=== PATIENT | male | born 1985 | race Caucasian/White ===

== ENCOUNTER 2023-03-26 14:56 | Inpatient (IN) | payer OTHER, SELFPAY ==
[2023-03-26] VITALS (22 sets, daily range): BP systolic 129–158; BP diastolic 91–119; PULSE 68–97; RESP 16–20; TEMP 35.9–36.4; O2SAT 94–100; BMI 29.3
--- NOTE | 2023-03-26 15:17 | CRLHL7_ITS ---
For Patients: As a result of the Century Cures Act, medical imaging exams and procedure reports are released immediately into your electronic medical record. You may view this report before your referring provider. If you have questions, please contact your health care provider. INDICATION: Right upper quadrant abdomen pain. TECHNIQUE: Ultrasound abdomen limited. Sonographic images of the right upper quadrant were obtained using rao-scale and color Doppler images. COMPARISON: None. FINDINGS: Liver: Increased echogenicity of the liver.. No suspicious masses. No intrahepatic biliary dilatation. The hepatic lobe cysts measuring 2.5 x 1.8 x 2.2 centimeters Gallbladder: Shadowing stone identified in the gallbladder fundus measuring up to 1.4 centimeters in diameter. Gallbladder wall measures up to 3 millimeters, at the upper limits of normal.. Of note, a positive sonographic Chau sign was noted. Common bile duct: 6 mm. Pancreas: Partially visualized, unremarkable Right kidney: Normal in size. Normal echotexture and cortex. No suspicious masses, stones, or hydronephrosis. Vasculature: Proximal abdominal aorta and IVC are unremarkable. IMPRESSION: Cholelithiasis with gallbladder wall measuring at the upper limits of normal. Positive sonographic Chau sign is noted. Findings can be seen in the proper clinical setting for cholecystitis. Increased echogenicity of the liver concerning for hepatic steatosis. Dictated by Derrell Shaffer MD @ 03/26/2023 5:01:28 PM (Electronically Signed)
--- NOTE | 2023-03-26 15:20 | ED_ITS ---
HPI - General Adult General Time Seen by Provider: 15:20 Date Seen: 03/26/23 Chief complaint: Abdominal Pain Stated complaint: stomach pains Time Seen by Provider: 03/26/23 15:05 Source: patient Mode of arrival: ambulatory Limitations: no limitations History of Present Illness HPI narrative: Patient is a 37-year-old male presenting emergency department for right upper quadrant pain. Has no previous abdominal surgeries. Patient states he is 1st had the pain 2 months ago and was supposed to have surgery at [facility] to remove his gallbladder. The 1st surgery was canceled and the next 1 was scheduled for a month after that but he was unable to make it due to a family emergency. He has been unable to get in with them since then. Patient states he has been jose ing Tylenol and ibuprofen for pain and Zofran for nausea in managing the symptoms at home. States the pain is acutely worse this morning. He has not been eat or drink anything is not taking any medications. She states they have a family vacation in 3 weeks in their hope indicates gallbladder removed before then. Denies fevers, chills, chest pain, shortness of breath, diarrhea, constipation, dysuria, headache, vision changes. Related Data Home Medications Medication Instructions Recorded Confirmed No Known Home Medications 03/26/23 03/26/23 Allergies Allergy/AdvReac Type Severity Reaction Status Date / Time bee venom protein (honey bee) Allergy Unknown Verified 03/26/23 15:11 Review of Systems Status of ROS: Reports: 10 or more systems reviewed and unremarkable except as noted in History and below PFSH PFS Social History What is your current living situation?: I presently have a place to live Problems where you live: no known problems Problems where you live details: none In the past 12 months, utilities in danger of being shut off: no In the past 12 mos, have been you worried that your food would run out before you had money to buy more?: never true In the past 12 mos, the food you bought just didn't last and you didn't have money to buy more?: never true Smoking Status: Never smoker Do you use any of these nicotine containing products: None How often do you have a drink containing alcohol: never How often do you have six or more drinks on one occasion: Never AUDIT-C Alcohol total score: 0 Non-prescribed substance use: denies use Caffeine: No How often does anyone, including family, friends and others, physically hurt you : never How often does anyone, including family, friends and others, insult or talk down to you: never How often does anyone, including family, friends and others, threaten you with harm: never How often does anyone, including family, friends and others, scream or curse at you: never service: No Exam Const: Vital Signs, click to edit/add: Vital Signs - 24 hr 03/26/23 15:07 03/26/23 15:19 03/26/23 15:30 Temperature 96.6 F L Pulse Rate 74 82 Pulse Rate [Pulse Oximeter] 73 Respiratory Rate 20 Blood Pressure Blood Pressure [Ri ght Upper Arm] 150/119 H Pulse Oximetry 97 97 [facility] 03/26/23 15:33 03/26/23 15:34 03/26/23 15:39 Temperature Pulse Rate 85 82 Pulse Rate [Pulse Oximeter] Respiratory Rate Blood Pressure 148/94 H Blood Pressure [Ri ght Upper Arm] Pulse Oximetry 96 96 96 Oxygen Delivery [facility] 03/26/23 15:45 03/26/23 16:02 03/26/23 16:07 Temperature Pulse Rate 89 68 Pulse Rate [Pulse Oximeter] Respiratory Rate Blood Pressure 129/91 H Blood Pressure [Ri ght Upper Arm] Pulse Oximetry 94 100 Oxygen Delivery [facility] 03/26/23 16:15 03/26/23 16:30 03/26/23 16:45 Temperature Pulse Rate 75 73 73 Pulse Rate [Pulse Oximeter] Respiratory Rate Blood Pressure Blood Pressure [Ri ght Upper Arm] Pulse Oximetry 95 95 95 [facility] 03/26/23 17:00 03/26/23 17:03 03/26/23 17:15 Temperature Pulse Rate 72 74 79 Pulse Rate [Pulse Oximeter] Respiratory Rate Blood Pressure 158/103 H Blood Pressure [Ri ght Upper Arm] Pulse Oximetry 97 97 97 [facility] 03/26/23 17:30 03/26/23 17:45 03/26/23 18:00 Temperature Pulse Rate 77 81 80 Pulse Rate [Pulse Oximeter] Respiratory Rate Blood Pressure Blood Pressure [Ri ght Upper Arm] Pulse Oximetry 97 97 97 [facility] 03/26/23 18:02 Temperature Pulse Rate 76 Pulse Rate [Pulse Oximeter] Respiratory Rate Blood Pressure 139/95 H Blood Pressure [Ri ght Upper Arm] Pulse Oximetry 97 Oxygen Delivery Me thod Course Vital Signs Vital signs: Initial Vital Signs Temperature 96.6 F L 03/26/23 15:07 Temperature Source Temporal Artery Scan 03/26/23 15:07 Pulse Rate 73 03/26/23 15:07 Respiratory Rate 20 03/26/23 15:07 Blood Pressure 150/119 H 03/26/23 15:07 Blood Pressure Mean 129 H 03/26/23 15:07 Blood Pressure Position Supine 03/26/23 15:07 Pulse Oximetry 97 03/26/23 15:07 Oxygen Delivery Method Room Air 03/26/23 15:07 Vital Signs Temperature 96.6 F L 03/26/23 15:07 Pulse Rate 73 03/26/23 15:07 Respiratory Rate 20 03/26/23 15:07 Blood Pressure 150/119 H 03/26/23 15:07 Pulse Oximetry 97 03/26/23 15:07 Oxygen Delivery Method Room Air 03/26/23 15:07 Temperature 97.0 F L 03/26/23 18:51 Pulse Rate 76 03/26/23 18:02 Respiratory Rate 18 03/26/23 18:51 Blood Pressure 139/95 H 03/26/23 18:02 Pulse Oximetry 97 03/26/23 18:51 Oxygen Delivery Method Room Air 03/26/23 18:51 Medical Decision Making [facility] Narrative Medical decision making narrative: Const: Well-nourished, Well-developed, in moderate distress Eyes: PERRL, no conjunctival injection, and symmetrical lids ENMT: Atraumatic external nose and ears. Moist mucous membranes. Neck: Symmetric, trachea midline, No thyromegaly. CVS: RRR, No murmurs or gallops. Peripheral pulses 2+ and equal in all extremities RESP: Unlabored respiratory effort. Clear to auscultation bilaterally. GI: Right upper quadrant tenderness. Nondistended, No rebound or guarding. Negative Chau sign MSK:Extremities w/o deformity, Normal Active ROM Skin: Warm, Dry. No rashes or lesions. Neuro: Normal Muscle tone, No focal neurological deficits. Psych: Awake, Alert, & Oriented x3. Appropriate mood and affect. Lab Data Labs: Lab Results 03/26/23 Range/Units 15:17 WBC 10.40 (4.50-11.00) K/uL RBC 5.38 (4.30-5.90) m/uL Hgb 15.8 (13.5-17.5) gm/dL Hct 46.0 (37.0-53.0) % MCV 86 (80-100) fL MCH 29 (26-34) pg MCHC 34 (32-36) gm/dL RDW Coeff of Georgie 11.9 (11.5-15.5) % Plt Count 213 (140-440) K/uL Neut % (Auto) 80.3 H (42.0-72.0) % Lymph % (Auto) 11.7 L (20-44) % Hamilton % (Auto) 6.1 (0.0-11.0) % Eos % (Auto) 0.3 (0.0-7.0) % Baso % (Auto) 0.3 (0.0-3.0) % Neut # (Auto) 8.40 H (1.7-7.0) K/uL Lymph # (Auto) 1.20 (0.90-2.90) K/uL Hamilton # (Auto) 0.60 (0.00-0.90) K/UL Eos # (Auto) 0.03 (0.00-0.50) K/uL Baso # (Auto) 0.03 (0.00-0.30) K/uL Abs Immat Gran (auto) 0.14 (0.00-0.30) K/uL Imm/Tot Granulo (auto) 1.3 % Sodium 138 (135-149) mmol/L Potassium 3.9 (3.6-5.1) mmol/L Chloride 103 (96-114) mmol/L Carbon Dioxide 25 (20-32) mmol/L BUN 17 (5-24) mg/dL Creatinine 0.8 (0.5-1.5) mg/dL Estimated Creat Clear 137.27 Estimated GFR 118 ml/min Glucose 114 (60-115) mg/dL Calcium 9.0 (8.4-10.6) mg/dL Total Bilirubin 0.8 (0.1-1.5) mg/dL AST 30 (12-35) U/L ALT 41 (4-50) U/L Alkaline Phosphatase 63 (40-150) U/L Total Protein 7.6 (6.0-8.3) g/dL Albumin 4.7 (3.3-5.0) g/dL Lipase 50 (23-300) U/L Discharge Plan Discharge Patient Disposition: Admitted As Observation
[2023-03-26] MEDS: LACTATED RINGERS 1000 ML 1,000 ML IV (15:24)
[2023-03-26] MEDS: MORPHINE 4 MG/ML INJ IVP ×2 (15:25→16:38)
[2023-03-26] MEDS: ONDANSETRON 2 MG/ML inj 4 MG IVP (15:25)
[2023-03-26 15:30] LABS: Basophils Absolute Auto 0.03 K/uL (0.00-0.30); Basophils Percent Auto 0.3 % (0.0-3.0); Eosinophils Absolute Auto 0.03 K/uL (0.00-0.50); Eosinophils Percent Auto 0.3 % (0.0-7.0); Hemoglobin* 15.8 gm/dL (13.5-17.5); Immature Granulocytes Abs Auto 0.14 K/uL (0.00-0.30); Immature Granulocytes Pct Auto 1.3 %; Lymphocytes Percent Auto 11.7 % (20-44); Mean Corpuscular HGB Conc 34 gm/dL (32-36); Mean Corpuscular Hemoglobin 29 pg (26-34); Mean Corpuscular Volume 86 fL (80-100); Monocytes Percent Auto 6.1 % (0.0-11.0); Neutrophils Percent Auto 80.3 % (42.0-72.0); Platelet Count* 213 K/uL (140-440); RDW Coefficient of Variation % 11.9 % (11.5-15.5); Red Blood Count 5.38 m/uL (4.30-5.90)
[2023-03-26 15:45] LABS: Albumin* 4.7 g/dL (3.3-5.0)
[2023-03-26 15:46] LABS: Chloride* 103 mmol/L (96-114); Potassium* 3.9 mmol/L (3.6-5.1); Sodium* 138 mmol/L (135-149)
[2023-03-26 15:48] LABS: Aspartate Amino Transferase* 30 U/L (12-35); Bilirubin Total* 0.8 mg/dL (0.1-1.5); Carbon Dioxide* 25 mmol/L (20-32); Creatinine* 0.8 mg/dL (0.5-1.5); Est. Creatinine Clearance* 137.27; Estimated Glomerular Filt Rate 118 ml/min; Total Protein* 7.6 g/dL (6.0-8.3)
[2023-03-26 15:49] LABS: Alanine Aminotransferase* 41 U/L (4-50); Alkaline Phosphatase* 63 U/L (40-150); Blood Urea Nitrogen* 17 mg/dL (5-24); Glucose* 114 mg/dL (60-115); Lipase* 50 U/L (23-300)
[2023-03-26 16:00] LABS: Slide Review Reflex No
--- NOTE | 2023-03-26 19:02 | P.IMHP_ITS ---
Hospitalist- H&P: HPI History of Present Illness Date Seen: 03/26/23 Chief complaint: stomach pains Narrative: Rafi Bustamante is a 37 year old male who is presenting to ED for evaluation of abdominal pain. The patient has had intermittent RUQ abdominal pain over the last two months. He was supposed to have previous lap miguel but ultimately had to cancel his surgery due to schedule issues. He presented today to ED for evaluation of nausea, vomiting, and 10/10 abdominal pain. In the ED notable labs included normal WBC, normal AST, ALT. RUQ US showed Cholelithiasis with gallbladder wall measuring at the upper limits of normal. Positive sonographic Chau sign is noted. Findings can be seen in the proper clinical setting for cholecystitis. His case was discussed with general surgery who recommended admission for anticipated Lap miguel tomorrow. MPRESSION: Cholelithiasis with gallbladder wall measuring at the upper limits of normal. Positive sonographic Chau sign is noted. Findings can be seen in the proper clinical setting for cholecystitis. Increased echogenicity of the liver concerning for hepatic steatosis. Fam Hx-negative for complications from general anesthesia; mother with fatty liver dx Soc Hx-[employer], negative for tobacco use Review of Systems Status of ROS: Reports: 10 or more systems reviewed and unremarkable except as noted in History and below PFSH PFS Social History What is your current living situation?: I presently have a place to live Problems where you live: no known problems Problems where you live details: none In the past 12 months, utilities in danger of being shut off: no In the past 12 mos, have been you worried that your food would run out before you had money to buy more?: never true In the past 12 mos, the food you bought just didn't last and you didn't have money to buy more?: never true Smoking Status: Never smoker Do you use any of these nicotine containing products: None How often do you have a drink containing alcohol: never How often do you have six or more drinks on one occasion: Never AUDIT-C Alcohol total score: 0 Non-prescribed substance use: denies use Caffeine: No How often does anyone, including family, friends and others, physically hurt you : never How often does anyone, including family, friends and others, insult or talk down to you: never How often does anyone, including family, friends and others, threaten you with harm: never How often does anyone, including family, friends and others, scream or curse at you: never service: No Meds Home Medications and Allergies Home Medications Medication Instructions Recorded Confirmed Type No Known Home Medications 03/26/23 03/26/23 History Allergies Allergy/AdvReac Type Severity Reaction Status Date / Time bee venom protein (honey bee) Allergy Unknown Verified 03/26/23 15:11 Exam Narrative: Exam Narrative: Gen: no acute distress HEENT: NCAT EOMI mmm Neck: Supple CV: RRR normal s1 s2 Lungs: CTAB Abd: Soft,nt, nd Neuro: Alert, oriented, CN grossly intact; nonfocal screening?exam Psych: appropriate affect MSK: age appropriate muscle mass Skin; Warm, dry no rash on face Const: Vital Signs, click to edit/add: Vital Signs - 24 hr 03/26/23 15:07 03/26/23 15:19 03/26/23 15:30 Temperature 96.6 F L Pulse Rate 74 82 Pulse Rate [Pulse Oximeter] 73 Respiratory Rate 20 Blood Pressure Blood Pressure [Ri ght Upper Arm] 150/119 H Pulse Oximetry 97 97 95 Oxygen Delivery Me thod Room Air 03/26/23 15:33 03/26/23 15:34 03/26/23 15:39 Temperature Pulse Rate 85 82 Pulse Rate [Pulse Oximeter] Respiratory Rate Blood Pressure 148/94 H Blood Pressure [Ri ght Upper Arm] Pulse Oximetry 96 96 96 Oxygen Delivery Me thod 03/26/23 15:45 03/26/23 16:02 03/26/23 16:07 Temperature Pulse Rate 89 68 Pulse Rate [Pulse Oximeter] Respiratory Rate Blood Pressure 129/91 H Blood Pressure [Ri ght Upper Arm] Pulse Oximetry 94 100 Oxygen Delivery Me thod 03/26/23 16:15 03/26/23 16:30 03/26/23 16:45 Temperature Pulse Rate 75 73 73 Pulse Rate [Pulse Oximeter] Respiratory Rate Blood Pressure Blood Pressure [Ri ght Upper Arm] Pulse Oximetry 95 95 95 Oxygen Delivery Me thod 03/26/23 17:00 03/26/23 17:03 03/26/23 17:15 Temperature Pulse Rate 72 74 79 Pulse Rate [Pulse Oximeter] Respiratory Rate Blood Pressure 158/103 H Blood Pressure [Ri ght Upper Arm] Pulse Oximetry 97 97 97 Oxygen Delivery Me thod 03/26/23 17:30 03/26/23 17:45 03/26/23 18:00 Temperature Pulse Rate 77 81 80 Pulse Rate [Pulse Oximeter] Respiratory Rate Blood Pressure Blood Pressure [Ri ght Upper Arm] Pulse Oximetry 97 [address] [facility] 03/[facility]/23 18:02 Temperature Pulse Rate 76 Pulse Rate [Pulse Oximeter] Respiratory Rate Blood Pressure 139/95 H Blood Pressure [Ri ght Upper Arm] Pulse Oximetry [address] [facility] - [facility]: Result Labs Labs: Short CBC 03/26/23 Range/Units 15:17 WBC 10.40 (4.50-11.00) K/uL Hgb 15.8 (13.5-17.5) gm/dL Hct 46.0 (37.0-53.0) % Plt Count 213 (140-440) K/uL BMP 03/26/23 15:17 Sodium 138 Potassium 3.9 Chloride 103 Carbon Dioxide 25 BUN 17 Creatinine 0.8 Glucose 114 Calcium 9.0 Liver Function 03/26/23 Range/Units 15:17 Total Bilirubin 0.8 (0.1-1.5) mg/dL AST 30 (12-35) U/L ALT 41 (4-50) U/L Alkaline Phosphatase 63 (40-150) U/L Albumin 4.7 (3.3-5.0) g/dL Assessment and Plan Assessment and plan (1) Abdominal pain: Status: Acute Plan Assessment Rafi Bustamante is a 37 year old male who is presenting to ED for evaluation of abdominal pain. The patient has had intermittent RUQ abdominal pain over the last two months. He was supposed to have previous lap miguel but ultimately had to cancel his surgery due to schedule issues. He presented today to ED for evaluation of nausea, vomiting, and 10/10 abdominal pain. In the ED notable labs included normal WBC, normal AST, ALT. RUQ US showed Cholelithiasis with gallbladder wall measuring at the upper limits of normal. Positive sonographic Chau sign is noted. Findings can be seen in the proper clinical setting for ch olecystitis. His case was discussed with general surgery who recommended admission for anticipated Lap miguel tomorrow. 1. Symptomatic cholelithiasis; r/o early acute cholecystitis -IVF -antiemetics -IV PPI -start zosyn -npo midnight -surgery team contacted by ED -preop EKG Code-full DVT ppx-low risk
[2023-03-26] MEDS: PIPERACILLIN/TAZOBACTAM 3.375 GM in 0.9 % SODIUM CHLORIDE Mini-bag 100 ML IVPB (19:59)
[2023-03-26] MEDS: SODIUM CHLORIDE 0.9 % (FLUSH) 10 ML SYRINGE 5 ML IVF (20:58)
[2023-03-26 21:21] LABS: Appearance Urine Clear (Clear); Bilirubin Urine Negative (Negative); Blood Urine Negative (Negative); Color Urine Yellow (Yellow); Glucose Urine Negative (Negative); Ketones Urine Negative (Negative); Leukocyte Esterase Urine Negative (Negative); Nitrite Urine Negative (Negative); Protein Urine Negative (Negative); Urobilinogen Urine 0.2 (0.2-1.0); pH Urine 6.5 (5.0-8.5)
[2023-03-26 21:28] LABS: RBC Urine 0-2 (0-2); WBC Urine 0-2 (0-5)
--- NOTE | 2023-03-26 22:59 | PC.NURSE ---
End of shift nursing note, care provided from 0816-0813: Pt alert and oriented, pleasant and cooperative. Vitals stable, BP slightly elevated 154/96, pt asymptomatic, other vitals WDL, on RA. Pt rates pain 3/10 to middle of abdomen, but declines offer/need for PRN pain medication at this time. PRN meds options discussed w/ pt, pt states understanding and states he will let nursing staff know if and when he needs PRN for pain. Pt on clear liquid diet until 0000 then NPO, pt educated and compliant. Tolerated broth x2, jello, ice water and loya ice. Pt up ind in room, voiding without issue. Denies nausea, no emesis. Pre-op EKG completed, reviewed, scanned and placed into pt's chart. No wounds noted to skin aside from pt reported sunburn across chest. Sleeping at last check at 2255. Plan for surgery tomorrow, received scheduled IV abx to patent IV in L AC then saline locked. Pt has call light within reach and uses appropriately.
[2023-03-27] VITALS (31 sets, daily range): BP systolic 127–217; BP diastolic 66–132; PULSE 71–118; RESP 16–20; TEMP 36.1–37.2; O2SAT 93–99
[2023-03-27] MEDS: 0.9 % SODIUM CHLORIDE 1000 ml 1,000 ML 100 ML IV ×2 (00:25→10:11)
[2023-03-27] MEDS: PIPERACILLIN/TAZOBACTAM 3.375 GM in 0.9 % SODIUM CHLORIDE Mini-bag 100 ML IVPB ×3 (03:49→13:15)
--- NOTE | 2023-03-27 05:58 | PC.NURSE ---
shift note: The pt has been pleasant and cooperative. The pt has been reporting 2-3/10 mid abdominal pain- refused PRN pain mediations stating the pain is not bothersome; Denied nausea or vomiting. The pt has been NPO since midnight . An order for NS 100 ML/HR was received from Dr Diego last night ; and the IVF has been infusing throughout the night. The pt appeared without any acute distress throughout the shift.
[2023-03-27 06:45] LABS: Basophils Absolute Auto 0.02 K/uL (0.00-0.30); Basophils Percent Auto 0.3 % (0.0-3.0); Eosinophils Percent Auto 1.4 % (0.0-7.0); Hematocrit 43.1 % (37.0-53.0); Hemoglobin* 14.6 gm/dL (13.5-17.5); Immature Granulocytes Abs Auto 0.01 K/uL (0.00-0.30); Immature Granulocytes Pct Auto 0.1 %; Lymphocytes Absolute Auto 1.73 K/uL (0.90-2.90); Lymphocytes Percent Auto 24.9 % (20-44); Mean Corpuscular HGB Conc 34 gm/dL (32-36); Mean Corpuscular Hemoglobin 29 pg (26-34); Mean Corpuscular Volume 86 fL (80-100); Monocytes Percent Auto 11.1 % (0.0-11.0); Neutrophils Absolute Auto 4.31 K/uL (1.7-7.0); Neutrophils Percent Auto 62.2 % (42.0-72.0); Platelet Count* 189 K/uL (140-440); RDW Coefficient of Variation % 12.1 % (11.5-15.5); Red Blood Count 4.99 m/uL (4.30-5.90); White Blood Count* 6.94 K/uL (4.50-11.00)
[2023-03-27 06:55] LABS: Slide Review Reflex No
[2023-03-27 06:57] LABS: Chloride* 103 mmol/L (96-114)
[2023-03-27 06:58] LABS: Albumin* 4.1 g/dL (3.3-5.0); Sodium* 138 mmol/L (135-149)
[2023-03-27 07:01] LABS: Alanine Aminotransferase* 37 U/L (4-50); Alkaline Phosphatase* 55 U/L (40-150); Aspartate Amino Transferase* 28 U/L (12-35); Blood Urea Nitrogen* 10 mg/dL (5-24); Calcium* 8.7 mg/dL (8.4-10.6); Carbon Dioxide* 28 mmol/L (20-32); Creatinine* 0.8 mg/dL (0.5-1.5); Est. Creatinine Clearance* 137.27; Estimated Glomerular Filt Rate 118 ml/min; Glucose* 97 mg/dL (60-115); Total Protein* 6.5 g/dL (6.0-8.3)
[2023-03-27 07:02] LABS: INR 1.07 (0.91-1.10); Prothrombin Time 14.5 Seconds
--- NOTE | 2023-03-27 07:43 | PM.GSCN ---
Documented by User: Lashae Stubbs MD 03/27/23 12:27 History of Present Illness Consult details Date Seen: 03/27/23 Consult date: 03/27/23 Narrative: The patient is a 37-year-old male who presents to the emergency department yesterday with epigastric pain which began in the morning. He states around 8:09 a.m. he was at work when he developed pain in his epigastric region as well as nausea and vomiting. He states that the pain was so severe that it was 12/10. He came in to be seen. The pain did not radiate anywhere else. It has improved overnight to a 2/10. He was worked up previously at [facility] for this and a CT scan was done which showed gallstones but also possibly kidney cysts. He states that he is concerned because he feels as though 1 doctor said that they were concerning and another doctor said they were not. He feels as though he has gotten the run around regarding this. At [facility] he was given omeprazole, hydroxyzine and Zofran to take p.r.n.. He states that he has had this type of pain for the last year and a half and at 1 point had cholecystectomy scheduled but had to reschedule I believe because of work. He does not have any major medical problems and has not had surgery previously. He does not have any family history of clotting disorders that he knows of though his dad did have a blood clot in his arm and it is unclear whether not that was provoked. His mother had a provoked blood clot and had a history of hemochromatosis. PFSH PFSH Family History (Updated 03/27/23 @ 10:28 by Lashae Stubbs MD) Other Coagulation disorder Social History (Updated 03/27/23 @ 10:29 by Lashae Stubbs MD) Narrative: He does not smoke or drink alcohol. 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 What is your current living situation?: I presently have a place to live Problems where you live: no known problems Problems where you live details: none In the past 12 months, utilities in danger of being shut off: no In the past 12 mos, have been you worried that your food would run out before you had money to buy more?: never true In the past 12 mos, the food you bought just didn't last and you didn't have money to buy more?: never true Smoking Status: Never smoker Do you use any of these nicotine containing products: None How often do you have a drink containing alcohol: never How often do you have six or more drinks on one occasion: Never AUDIT-C Alcohol total score: 0 Non-prescribed substance use: denies use Caffeine: No How often does anyone, including family, friends and others, physically hurt you: never How often does anyone, including family, friends and others, insult or talk down to you: never How often does anyone, including family, friends and others, threaten you with harm: never How often does anyone, including family, friends and others, scream or curse at you: never service: No Meds Home Medications and Allergies Home Medications Medication Instructions Recorded Confirmed Type No Known Home Medications 03/26/23 03/26/23 History Allergies Allergy/AdvReac Type Severity Reaction Status Date / Time bee venom protein (honey bee) Allergy Unknown Verified 03/26/23 15:11 Exam Narrative: Exam Narrative: General appearance: Alert, cooperative, and in no distress Eyes: PERRLA, eye lids clear, and sclera white HENT Head: Normocephalic Ears: External ears normal Pulmonary: Breathing nonlabored on room air Cardiovascular Heart: Regular rate Gastrointestinal Abdominal: No scars. He is tender in the epigastric region. Minimally tender in the right upper quadrant. No peritoneal signs. Equivocal Chau sign. Musculoskeletal: Extremities: Upper: Both upper extremities have normal joint range of motion and intact strength. Lower: Both lower extremities have normal joint range of motion and intact strength. Skin: Normal skin color, texture, and turgor. Neurologic: No focal deficits Psychiatric: Alert, oriented, cooperative, normal affect. Const: Vital Signs, click to edit/add: Vital Signs - 24 hr 03/26/23 15:07 03/26/23 15:19 03/26/23 15:30 Temperature 96.6 F L Pulse Rate 74 82 Pulse Rate [Pulse Oximeter] 73 Respiratory Rate 20 Blood Pressure Blood Pressure [Ri ght Arm] Blood Pressure [Ri ght Upper Arm] 150/119 H Pulse Oximetry 97 97 95 Oxygen Delivery Me thod Room Air Oxygen Flow Rate 03/26/23 15:33 03/26/23 15:34 03/26/23 15:39 Temperature Pulse Rate 85 82 Pulse Rate [Pulse Oximeter] Respiratory Rate Blood Pressure 148/94 H Blood Pressure [Ri ght Arm] Blood Pressure [Ri ght Upper Arm] Pulse Oximetry 96 96 96 Oxygen Delivery Me thod Oxygen Flow Rate 03/26/23 15:45 03/26/23 16:02 03/26/23 16:07 Temperature Pulse Rate 89 68 Pulse Rate [Pulse Oximeter] Respiratory Rate Blood Pressure 129/91 H Blood Pressure [Ri ght Arm] Blood Pressure [Ri ght Upper Arm] Pulse Oximetry 94 100 Oxygen Delivery Me thod Oxygen Flow Rate 03/26/23 16:15 03/26/23 16:30 03/26/23 16:45 Temperature Pulse Rate 75 73 73 Pulse Rate [Pulse Oximeter] Respiratory Rate Blood Pressure Blood Pressure [Ri ght Arm] Blood Pressure [Ri ght Upper Arm] Pulse Oximetry 95 95 95 Oxygen Delivery Me thod Oxygen Flow Rate 03/26/23 17:00 03/26/23 17:03 03/26/23 17:15 Temperature Pulse Rate 72 74 79 Pulse Rate [Pulse Oximeter] Respiratory Rate Blood Pressure 158/103 H Blood Pressure [Ri ght Arm] Blood Pressure [Ri ght Upper Arm] Pulse Oximetry 97 97 97 Oxygen Delivery Me thod Oxygen Flow Rate 03/26/23 17:30 03/26/23 17:45 03/26/23 18:00 Temperature Pulse Rate 77 81 80 Pulse Rate [Pulse Oximeter] Respiratory Rate Blood Pressure Blood Pressure [Ri ght Arm] Blood Pressure [Ri ght Upper Arm] Pulse Oximetry 97 97 97 Oxygen Delivery Me thod Oxygen Flow Rate 03/26/23 18:02 03/26/23 18:51 03/26/23 19:00 Temperature 97.0 F L 97.6 F Pulse Rate 76 Pulse Rate [Pulse Oximeter] 97 Respiratory Rate 18 16 Blood Pressure 139/95 H Blood Pressure [Ri ght Arm] 154/96 H Blood Pressure [Ri ght Upper Arm] Pulse Oximetry 97 97 97 Oxygen Delivery Me thod Room Air Room Air Oxygen Flow Rate 03/26/23 19:45 03/27/23 01:28 03/27/23 01:28 Temperature 97.4 F L Pulse Rate Pulse Rate [Pulse Oximeter] 97 94 Respiratory Rate 16 16 16 Blood Pressure Blood Pressure [Ri ght Arm] 130/66 Blood Pressure [Ri ght Upper Arm] Pulse Oximetry 97 94 Oxygen Delivery Me thod Room Air Room Air Oxygen Flow Rate 0 0 03/27/23 03:00 Temperature 98.3 F Pulse Rate Pulse Rate [Pulse Oximeter] 80 Respiratory Rate 16 Blood Pressure Blood Pressure [Ri ght Arm] 131/83 Blood Pressure [Ri ght Upper Arm] Pulse Oximetry 96 Oxygen Delivery Me thod Room Air Oxygen Flow Rate 0 Results Labs Labs: Abnormal lab results 03/26/23 03/27/23 Range/Units 15:17 05:54 Neut % (Auto) 80.3 H (42.0-72.0) % Lymph % (Auto) 11.7 L (20-44) % [place] % (Auto) 11.1 H (0.0-11.0) % Neut # (Auto) 8.40 H (1.7-7.0) K/uL Total Bilirubin 1.6 H (0.1-1.5) mg/dL Diabetes panel 03/26/23 03/27/23 Range/Units 15:17 05:54 Sodium 138 138 (135-149) mmol/L Potassium 3.9 4.0 (3.6-5.1) mmol/L Chloride 103 103 (96-114) mmol/L Carbon Dioxide 25 28 (20-32) mmol/L BUN 17 10 (5-24) mg/dL Creatinine 0.8 0.8 (0.5-1.5) mg/dL Glucose 114 97 (60-115) mg/dL Calcium 9.0 8.7 (8.4-10.6) mg/dL AST 30 28 (12-35) U/L ALT 41 37 (4-50) U/L Alkaline Phosphatase 63 55 (40-150) U/L Total Protein 7.6 6.5 (6.0-8.3) g/dL Albumin 4.7 4.1 (3.3-5.0) g/dL Calcium panel 03/26/23 03/27/23 Range/Units 15:17 05:54 Calcium 9.0 8.7 (8.4-10.6) mg/dL Albumin 4.7 4.1 (3.3-5.0) g/dL Pituitary panel 03/26/23 03/27/23 Range/Units 15:17 05:54 Sodium 138 138 (135-149) mmol/L Potassium 3.9 4.0 (3.6-5.1) mmol/L Chloride 103 103 (96-114) mmol/L Carbon Dioxide 25 28 (20-32) mmol/L BUN 17 10 (5-24) mg/dL Creatinine 0.8 0.8 (0.5-1.5) mg/dL Glucose 114 97 (60-115) mg/dL Calcium 9.0 8.7 (8.4-10.6) mg/dL Adrenal panel 03/26/23 03/27/23 Range/Units 15:17 05:54 Sodium 138 138 (135-149) mmol/L Potassium 3.9 4.0 (3.6-5.1) mmol/L Chloride 103 103 (96-114) mmol/L Carbon Dioxide 25 28 (20-32) mmol/L BUN 17 10 (5-24) mg/dL Creatinine 0.8 0.8 (0.5-1.5) mg/dL Glucose 114 97 (60-115) mg/dL Calcium 9.0 8.7 (8.4-10.6) mg/dL Total Bilirubin 0.8 1.6 H (0.1-1.5) mg/dL AST 30 28 (12-35) U/L ALT 41 37 (4-50) U/L Alkaline Phosphatase 63 55 (40-150) U/L Total Protein 7.6 6.5 (6.0-8.3) g/dL Albumin 4.7 4.1 (3.3-5.0) g/dL Total bilirubin was initially reported as 1.6 this morning - I added a direct bilirubin component and bilirubin was reported as 1.5 with a direct fraction of 0.1. Imaging Abdominal ultrasound report/results: report reviewed and image reviewed Additional studies: [address] [address] Diagnostic Imaging Report Patient: Rafi Bustamante MR#: [id number] : 1985 Acct:[id number] Loc: ED Service Date: 03/26/[address]: Ordering Physician: Yaron Bradford DO Date of Service: 03/26/23 Procedure(s): US abdomen limited Accession Number(s): [id number] cc: Yaron Bradford DO; Provider,Not a Local~ For Patients: As a result of the Cures Act, medical imaging exams and procedure reports are released immediately into your electronic medical record. You may view this report before your referring provider. If you have questions, please contact your health care provider. INDICATION: Right upper quadrant abdomen pain. TECHNIQUE: Ultrasound abdomen limited. Sonographic images of the right upper quadrant were obtained using rao-scale and color Doppler images. COMPARISON: None. FINDINGS: Liver: Increased echogenicity of the liver.. No suspicious masses. No intrahepatic biliary dilatation. The hepatic lobe cysts measuring 2.5 x 1.8 x 2.2 centimeters Gallbladder: Shadowing stone identified in the gallbladder fundus measuring up to 1.4 centimeters in diameter. Gallbladder wall measures up to 3 millimeters, at the upper limits of normal.. Of note, a positive sonographic Chau sign was noted. Common bile duct: 6 mm. Pancreas: Partially visualized, unremarkable Right kidney: Normal in size. Normal echotexture and cortex. No suspicious masses, stones, or hydronephrosis. Vasculature: Proximal abdominal aorta and IVC are unremarkable. IMPRESSION: Cholelithiasis with gallbladder wall measuring at the upper limits of normal. Positive sonographic Chau sign is noted. Findings can be seen in the proper clinical setting for cholecystitis. Increased echogenicity of the liver concerning for hepatic steatosis. Dictated by Derrell Shaffer MD @ 03/26/2023 5:01:28 PM Additionally, the patient CT scan reports from 2 outside hospitals were reviewed. From 2011: CT scan shows numerous bilateral renal cortical low attenuation lesions that are likely cyst. Several are too small to accurately characterize. The largest ones are borderline in size for accurate measurement and do not need CT criteria for a simple cyst. Consideration for follow-up with renal ultrasound could be considered. From August of 2022: Increasing bilateral renal cysts, some of which contain hemorrhage, proteinaceous debris and or mix of calcium. Cholelithiasis. Some cysts in the liver have developed since the previous exam and her likely related to polycystic kidney disease. Liver ultrasound could be performed for definitive evaluation Assessment and Plan Assessment and plan (1) Cholecystitis: Status: Acute (2) Polycystic kidney disease: Status: Acute Plan The patient is a 37-year-old male with likely early acute cholecystitis. I explained that the treatment for this is laparoscopic cholecystectomy. We discussed the procedure as well as risks and benefits of surgery which include bleeding, infection, bile leak, conversion to open or injury to other structures, specifically the common bile duct. We also discussed recovery. We did discuss intraoperative cholangiogram because initially his total bilirubin was noted to be 1.6, however I added on a direct fraction and this was really resulted within normal limits at 1.5 with a direct fraction of 0.01. Therefore unless there is a concerning intraoperative finding we will not plan on cholangiogram. I did discuss the procedure with him and the indications for ERCP. He is agreeable to proceed and we are going to plan on surgery today. After reviewing his records from outside hospital, it appears as though he has polycystic kidney disease as well as some cysts in his liver. Recommendations are for renal and liver ultrasound. I recommend that he establish primary care and get that workup done. Whether not he would need referral to a specialist can then be decided based on those results. Documented by User: Tracy Casarez MD 03/27/23 08:09 History of Present Illness Consult details Consult date: 03/27/23 PFSH PFSH Family History (Updated 03/27/23 @ 10:28 by Lashae Stubbs MD) Other Coagulation disorder Social History (Updated 03/27/23 @ 10:29 by Lashae Stubbs MD) Narrative: He does not smoke or drink alcohol. 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 What is your current living situation?: I presently have a place to live Problems where you live: no known problems Problems where you live details: none In the past 12 months, utilities in danger of being shut off: no In the past 12 mos, have been you worried that your food would run out before you had money to buy more?: never true In the past 12 mos, the food you bought just didn't last and you didn't have money to buy more?: never true Smoking Status: Never smoker Do you use any of these nicotine containing products: None How often do you have a drink containing alcohol: never How often do you have six or more drinks on one occasion: Never AUDIT-C Alcohol total score: 0 Non-prescribed substance use: denies use Caffeine: No How often does anyone, including family, friends and others, physically hurt you: never How often does anyone, including family, friends and others, insult or talk down to you: never How often does anyone, including family, friends and others, threaten you with harm: never How often does anyone, including family, friends and others, scream or curse at you: never service: No Meds Home Medications and Allergies Home Medications Medication Instructions Recorded Confirmed Type No Known Home Medications 03/26/23 03/26/23 History Allergies Allergy/AdvReac Type Severity Reaction Status Date / Time bee venom protein (honey bee) Allergy Unknown Verified 03/26/23 15:11 Assessment and Plan Assessment and plan (1) Cholecystitis: Status: Acute (2) Polycystic kidney disease: Status: Acute
[2023-03-27 08:00] LABS: Bilirubin Direct* 0.1 mg/dL (0.0-0.5)
[2023-03-27 08:03] LABS: Bilirubin Total* 1.5 mg/dL (0.1-1.5)
[2023-03-27] MEDS: SODIUM CHLORIDE 0.9 % (FLUSH) 10 ML SYRINGE 5 ML IVF (10:13)
--- NOTE | 2023-03-27 12:54 | W.ANESCHARGE ---
Anesthesia Charges Start Date/Time Anesthesia Start Date: 03/27/23 Anesthesia Start Time: 13:05 Stop Date/Time Anesthesia Stop Date: 03/27/23 Anesthesia Stop Time: 14:56
--- NOTE | 2023-03-27 13:24 | SUR.OPER ---
PATIENT RETRIEVED FROM [facility] BY KELVIN HILL.
[2023-03-27] MEDS: LACTATED RINGERS 1000 ML 1,000 ML 125 ML IV (13:37)
[2023-03-27] MEDS: BUPIVACAINE 0.5% 30 ML INJECTION (14:33)
--- NOTE | 2023-03-27 14:54 | P.GSOP_ITS ---
Operative Note Pre-op diagnosis: Acute cholecystitis Post-op diagnosis: Same Type of Procedure: Laparoscopic cholecystectomy Indications: The patient is a 37-year-old male who has a history of biliary colic and gallstones. He presented with severe epigastric pain, nausea and vomiting. He was found to have cholelithiasis with borderline gallbladder wall thickening. Because of concern for early acute cholecystitis, I recommended cholecystectomy. He agreed to proceed after discussion of the procedure. Procedure Description: After discussing the risks and benefits of the procedure, the patient signed informed consent.? The operative site was marked and the patient was brought to the operating room and placed on the operating table in supine position.? Care was taken to pad the patient's pressure points.?? The patient was then given sedation by anesthesia.?? The operative site was then prepped and draped in the usual sterile fashion.? A time-out was then performed. Entrance to the abdomen was gained via a 5 mm Visiport in the left upper quadrant. The abdomen was insufflated and briefly surveyed for signs of injury. There was none. A 10 mm umbilical port was placed as well as 2 working ports along the right costal margin, all under direct vision. The patient was then placed in reverse Trendelenburg position with the right side up. The gallbladder fundus was grasped and retracted cephalad. There was edema noted about the area of the infundibulum. The infundibulum was grasped and the peritoneum was incised with cautery. This dissection was taken medially along the edge of the gallbladder as well as laterally. I dissected out the cystic artery in its usual location running along the gallbladder. There was a stone impacted here at the gallbladder neck. This was pushed back into the gallbladder. A combination of hook cautery and blunt dissection was used to carefully dissect out the cystic duct and artery until they could clearly be seen entering the gallbladder without any intervening structures. The gallbladder was dissected off the cystic plate to achieve the critical view. There was a fair amount of edema about the gallbladder. Very small bleeding vessels along the peritoneal edge of the gallbladder were clipped to ensure hemostasis. Once this was achieved, the cystic artery was clipped with 2 clips proximally and 1 clip distally and transected with the scissors. The cystic duct was dissected down more distally. This was somewhat dilated because of the impacted stone. I therefore elected to ligate the cystic duct stump with the endoloop. I occluded the proximal gallbladder with a grasper an using a scissors I then divided the gallbladder at its neck. I then examined for any stones in the duct and again gently milked the duct backward to ensure there were no stones stuck within the duct itself. There were none. I then used both a Vicryl and a PDS endoloop to ligate the cystic duct stump. There was a small cuff of gallbladder left. I ablated the mucosa using cautery to prevent a mucocele. I then removed the gallbladder from the liver bed using cautery. This was then placed in an Endo- Catch bag and removed from the abdomen. The gallbladder bed was surveyed for hemostasis which appeared adequate. The ports were then removed and the abdomen desufflated. The umbilical port fascia was then closed with 0 Vicryl. The skin was closed with absorbable subcuticular suture. Instrument sponge and needle counts were correct at the end of the case. The patient was then woken and transferred to the PACU in stable condition. ? The patient tolerated the procedure well. Findings: Edematous gallbladder with small gallstones and stone obstructing the cystic duct.. Anesthesia: GETA Surgeon: Lashae Stubbs MD Estimated blood loss (mL): 15 Specimen: Gallbladder Condition: stable Disposition: PACU
[2023-03-27] MEDS: MEPERIDINE 25 MG/ML INJ 12.5 MG IVP (14:56)
--- NOTE | 2023-03-27 14:59 | W.ANESCHARGE ---
Anesthesia Charges Start Date/Time Anesthesia Start Date: 03/27/23 Anesthesia Start Time: 13:05 Stop Date/Time Anesthesia Stop Date: 03/27/23 Anesthesia Stop Time: 14:56
[2023-03-27] MEDS: LABETALOL HCL 5 MG/ML inj IVP ×2 (15:08→15:21)
[2023-03-27] MEDS: fentaNYL 100 MCG/2 ML inj 50 MCG IVP ×2 (15:14→15:29)
[2023-03-27] MEDS: HYDROmorphone 0.5 mg/0.5 ml inj IVP ×3 (15:39→20:39)
[2023-03-27] MEDS: HYDRALAZINE HCL 20 MG/ML inj 10 MG IVP ×2 (15:42→16:55)
--- NOTE | 2023-03-27 16:15 | W.PM.CROSSCO ---
Subjective Subjective Date Seen: 03/27/23 Interval history: hydralazine ordered for HTN
[2023-03-27] MEDS: FUROSEMIDE 10 MG/ML inj IVP (18:53)
[2023-03-27 19:45] LABS: Amphetamine Screen Urine Negative (Negative); Barbiturate Screen Urine Negative (Negative); Benzodiazepines Screen Urine Negative (Negative); Cannabinoid Screen Urine Negative (Negative); Cocaine Screen Urine Negative (Negative); Methadone Screen Urine Negative (Negative); Methamphetamines Screen Urine Negative (Negative); Opiate Screen Urine POSITIVE (Negative); Oxycodone Screen Urine Negative (Negative); Phencyclidine Screen Urine Negative (Negative); Tricyclic Antidepressant Urine Negative (Negative)
--- NOTE | 2023-03-27 19:53 | PC.NURSE ---
shift note: pt returned to 262 via bed @ 1600 from pacu. lap site x4 intact. RUQ and umbilicus lap site with scant amount of bloody drainage on pt's gown. ice jose applied to abd. Pt medicated with 0.5mg dilaudid @ 1700 for 5/10 umbilicus pain. pt stated pain 2/10 @1730. Pt tolerating ice chips and diet pepsi. pt had 1 beatriz cracker and 2 bites of mashed potatoes. BS absent on admit to and are now hypoactive x4. Pt denies nausea. LS clr. Pt on RA. Dr. Wagner updated on pt's elevated BP's and orders to give Hydralazine 10mg IV. No change noted in BP's. Dr. Wagner notified again with pt updated BP's and that Pt was feeling dizzy,warm. Pt appeared diaphoretic. Pt HOB decreased and dizziness resolved. Pt pale. Orders per Dr. Wagner to give lasix. labetolol, ativan and dilaudid IV. Charge nurse notified of pt's BP changes. Dr. Stubbs notified of pt's vss changes by charge nurse. Charge nurse actively updated Dr. Stubbs with pt condition. UA sent. Pt voided 100cc so far from IV lasix. Pt's s/o at bedside. Report given to Penny CHRISTIAN and Arabella CHRISTIAN.
[2023-03-27] MEDS: ONDANSETRON 2 MG/ML inj IVP ×2 (20:39→23:37)
[2023-03-27] MEDS: HYDROCODONE-ACETAMIN 5-325 MG 1 TAB PO (23:36)
[2023-03-28] VITALS (8 sets, daily range): BP systolic 139–165; BP diastolic 92–109; PULSE 77–101; RESP 16; TEMP 36.8–37.1; O2SAT 94–97
[2023-03-28] MEDS: HYDROCODONE-ACETAMIN 5-325 MG 1 TAB PO (06:07)
[2023-03-28 06:31] LABS: Basophils Absolute Auto 0.01 K/uL (0.00-0.30); Basophils Percent Auto 0.1 % (0.0-3.0); Eosinophils Absolute Auto 0.01 K/uL (0.00-0.50); Eosinophils Percent Auto 0.1 % (0.0-7.0); Hematocrit 45.7 % (37.0-53.0); Hemoglobin* 15.4 gm/dL (13.5-17.5); Immature Granulocytes Abs Auto 0.02 K/uL (0.00-0.30); Immature Granulocytes Pct Auto 0.2 %; Lymphocytes Percent Auto 15.5 % (20-44); Mean Corpuscular HGB Conc 34 gm/dL (32-36); Mean Corpuscular Hemoglobin 29 pg (26-34); Mean Corpuscular Volume 87 fL (80-100); Monocytes Percent Auto 9.6 % (0.0-11.0); Neutrophils Percent Auto 74.5 % (42.0-72.0); Platelet Count* 223 K/uL (140-440); RDW Coefficient of Variation % 12.2 % (11.5-15.5); Red Blood Count 5.26 m/uL (4.30-5.90); White Blood Count* 9.57 K/uL (4.50-11.00)
[2023-03-28 06:33] LABS: Slide Review Reflex No
[2023-03-28 06:42] LABS: Albumin* 4.6 g/dL (3.3-5.0); Chloride* 101 mmol/L (96-114); Sodium* 137 mmol/L (135-149)
[2023-03-28 06:44] LABS: Bilirubin Total* 1.2 mg/dL (0.1-1.5); Carbon Dioxide* 26 mmol/L (20-32); Creatinine* 0.8 mg/dL (0.5-1.5); Est. Creatinine Clearance* 137.27; Estimated Glomerular Filt Rate 118 ml/min
[2023-03-28 06:45] LABS: Alanine Aminotransferase* 66 U/L (4-50); Alkaline Phosphatase* 64 U/L (40-150); Aspartate Amino Transferase* 41 U/L (12-35); Blood Urea Nitrogen* 13 mg/dL (5-24); Calcium* 9.1 mg/dL (8.4-10.6); Glucose* 102 mg/dL (60-115); Total Protein* 7.3 g/dL (6.0-8.3)
--- NOTE | 2023-03-28 06:47 | PC.NURSE ---
[id number]: Patient pleasant and cooperative. Rates pain 4/10 w/PRN medications for relief. SBP 140-165 throughout shift. 4 lap sites w/steri strips C/D/I. 1 episode of emesis, Zofran administered for relief. Independent in room. SO at bedside and supportive. Voiding.
[2023-03-28 07:16] LABS: Thyroid Stimulating Hormone* 0.881 uIU/mL (0.270-4.20)
[2023-03-28] MEDS: AMLODIPINE 10 MG TABLET PO (09:03)
--- NOTE | 2023-03-28 11:29 | P.DS_ITS ---
DS: Providers Provider Date Seen: 03/28/23 Date of admission: 03/27/23 19:05 Primary care physician: Not a Local Provider Admitting Clinician: Benji Diego MD Attending Physician on discharge: Lola Brown MD Date of Discharge: 03/28/23 DS: Diagnosis Discharge Diagnosis (1) Cholecystitis: Status: Acute Problem details: - s/p lap cholecystectomy with Dr. Stubbs on 03/27 (2) Polycystic kidney disease: Status: Acute Problem details: - noted on previous imaging, needs outpatient f/u with PCP (3) Hypertension: Status: Acute Problem details: - Amlodipine initiated 03/28 DS: Summary Hospital Course Hospital Course: 37-year-old male, admitted to the hospital with acute cholecystitis on 03/26. He had an uncomplicated lap miguel on 03/27. Postoperatively, noted to have elevated blood pressures. These did improve with micturition, but remained elevated. After risk and benefit discussion, patient and comfortable with initiation of amlodipine and close PCP follow-up. Patient to establish care with Dr. Wynn and next week, routine postop follow- up with general surgery. He was medically appropriate for discharge on 03/28. Status at Discharge Functional status at discharge: independent ambulation Time Spent with Patient Time attestation: Total time spent providing and/or coordinating discharge services: Time spent: Greater than 30 minutes Specific discharge activities: Medication reconciliation, patient education, plan of care discussion with General Surgery Exam Narrative: Exam Narrative: GEN: Alert HEENT: EOMIs bilaterally, no scleral icterus CV: RRR, No concerning murmurs R: LCTA bilaterally without concerning wheezing, air movement adequate Ab: surgical sites not formally examined Ext: wwp, no concerning edema Skin: No concerning skin lesions or rashes on exposed skin Neuro: Nonfocal Psych: Appropriate Const: Vital Signs, click to edit/add: Vital Signs - 24 hr 03/27/23 14:55 03/27/23 15:00 03/27/23 15:05 Temperature 98.7 F Pulse Rate 107 H 107 H 102 H Pulse Rate [Pulse Oximeter] Respiratory Rate 20 18 17 Blood Pressure 150/90 H 183/95 H 171/117 H Blood Pressure [Ri ght Arm] Pulse Oximetry 96 96 96 Oxygen Delivery Me thod Room Air Room Air Room Air Oxygen Flow Rate 0 0 03/27/23 15:10 03/27/23 15:15 03/27/23 15:20 Temperature 98.5 F Pulse Rate 97 90 90 Pulse Rate [Pulse Oximeter] Respiratory Rate 20 18 18 Blood Pressure 165/112 H 168/111 H 168/122 H Blood Pressure [Ri ght Arm] Pulse Oximetry 96 96 96 Oxygen Delivery Me thod Room Air Room Air Room Air Oxygen Flow Rate 0 0 0 03/27/23 15:25 03/27/23 15:30 03/27/23 15:35 Temperature 99.0 F Pulse Rate 90 89 89 Pulse Rate [Pulse Oximeter] Respiratory Rate 18 20 19 Blood Pressure 165/113 H 167/105 H 168/108 H Blood Pressure [Ri ght Arm] Pulse Oximetry 96 93 93 Oxygen Delivery Me thod Room Air Room Air Room Air Oxygen Flow Rate 0 0 0 03/27/23 15:40 03/27/23 15:45 03/27/23 15:50 Temperature 98.7 F Pulse Rate 83 89 90 Pulse Rate [Pulse Oximeter] Respiratory Rate 20 16 18 Blood Pressure 155/109 H 149/104 H 148/102 H Blood Pressure [Ri ght Arm] Pulse Oximetry 94 95 95 Oxygen Delivery Me thod Room Air Room Air Room Air Oxygen Flow Rate 0 0 0 03/27/23 15:55 03/27/23 16:00 03/27/23 16:00 Temperature 98.6 F 98.4 F 98.5 F Pulse Rate 90 96 Pulse Rate [Pulse Oximeter] 96 Respiratory Rate 18 16 16 Blood Pressure 145/107 H Blood Pressure [Ri ght Arm] 203/131 H 203/131 H Pulse Oximetry 95 93 Oxygen Delivery Me thod Room Air Room Air Room Air Oxygen Flow Rate 0 0 03/27/23 16:15 03/27/23 16:30 03/27/23 16:45 Temperature 98.4 F 98.4 F 98.4 F Pulse Rate Pulse Rate [Pulse Oximeter] 96 90 86 Respiratory Rate 16 16 16 Blood Pressure Blood Pressure [Ri ght Arm] 200/117 H 217/123 H 200/119 H Pulse Oximetry 93 95 95 Oxygen Delivery Me thod Room Air Room Air Room Air Oxygen Flow Rate 0 0 0 03/27/23 17:00 03/27/23 17:30 03/27/23 17:43 Temperature 98.4 F 98.5 F Pulse Rate Pulse Rate [Pulse Oximeter] 97 97 107 H Respiratory Rate 16 16 16 Blood Pressure Blood Pressure [Ri ght Arm] 209/132 H 127/112 H 191/115 H Pulse Oximetry 96 95 96 Oxygen Delivery Me thod Room Air Room Air Room Air Oxygen Flow Rate 0 0 0 03/27/23 20:00 03/27/23 20:00 03/27/23 20:35 Temperature 97.0 F L 97.0 F L Pulse Rate 118 H Pulse Rate [Pulse Oximeter] 109 H 107 H Respiratory Rate 18 16 Blood Pressure Blood Pressure [Ri ght Arm] 155/98 H 151/100 H Pulse Oximetry 93 94 Oxygen Delivery Me thod Room Air Room Air Oxygen Flow Rate 03/27/23 21:00 03/27/23 21:30 03/27/23 22:00 Temperature 98.2 F Pulse Rate Pulse Rate [Pulse Oximeter] 107 H 105 H 104 H Respiratory Rate 18 Blood Pressure Blood Pressure [Ri ght Arm] 153/92 H 149/95 H 149/88 H Pulse Oximetry 94 94 Oxygen Delivery Me thod Room Air Oxygen Flow Rate 03/27/23 23:00 03/28/23 00:00 03/28/23 00:19 Temperature 98.2 F Pulse Rate 99 Pulse Rate [Pulse Oximeter] 99 92 Respiratory Rate 16 Blood Pressure Blood Pressure [Ri ght Arm] 145/93 H 165/98 H Pulse Oximetry 95 Oxygen Delivery Me thod Room Air Oxygen Flow Rate 03/28/23 02:00 03/28/23 03:47 03/28/23 04:00 Temperature Pulse Rate 80 Pulse Rate [Pulse Oximeter] 87 77 Respiratory Rate 16 16 Blood Pressure Blood Pressure [Ri ght Arm] 162/92 H 147/92 H Pulse Oximetry 94 95 Oxygen Delivery Me thod Room Air Room Air Oxygen Flow Rate 03/28/23 05:59 03/28/23 07:00 03/28/23 07:00 Temperature 98.8 F Pulse Rate 78 Pulse Rate [Pulse Oximeter] 101 H 82 Respiratory Rate 16 Blood Pressure Blood Pressure [Ri ght Arm] 164/109 H 139/93 H Pulse Oximetry 95 Oxygen Delivery Me thod Room Air Oxygen Flow Rate 03/28/23 07:00 03/28/23 08:00 Temperature 98.2 F Pulse Rate Pulse Rate [Pulse Oximeter] 78 78 Respiratory Rate 16 16 Blood Pressure Blood Pressure [Ri ght Arm] 159/97 H Pulse Oximetry 97 Oxygen Delivery Me thod Room Air Oxygen Flow Rate 0 DS: Data Data Completed and Pending Labs on day of discharge: Labs from last 24 hours 03/28/23 03/27/23 05:50 19:33 WBC 9.57 RBC 5.26 Hgb 15.4 Hct 45.7 MCV 87 MCH 29 MCHC 34 RDW Coeff of Georgie 12.2 Plt Count 223 Neut % (Auto) 74.5 H Lymph % (Auto) 15.5 L [place] % (Auto) 9.6 Eos % (Auto) 0.1 Baso % (Auto) 0.1 Neut # (Auto) 7.10 H Lymph # (Auto) 1.50 [place] # (Auto) 0.90 Eos # (Auto) 0.01 Baso # (Auto) 0.01 Abs Immat Gran (auto) 0.02 Imm/Tot Granulo (auto) 0.2 Sodium 137 Potassium 4.0 Chloride 101 Carbon Dioxide 26 BUN 13 Creatinine 0.8 Estimated Creat Clear 137.27 Estimated GFR 118 Glucose 102 Calcium 9.1 Total Bilirubin 1.2 AST 41 H ALT 66 H Alkaline Phosphatase 64 Total Protein 7.3 Albumin 4.6 TSH 0.881 Urine Opiates Screen POSITIVE A Ur Oxycodone Screen Negative Urine Methadone Screen Negative Ur Propoxyphene Screen Negative Ur Barbiturates Screen Negative U Tricyclic Antidepress Negative Ur Phencyclidine Scrn Negative Ur Amphetamines Screen Negative U Methamphetamines Scrn Negative U Benzodiazepines Scrn Negative Urine Cocaine Screen Negative U Marijuana (THC) Screen Negative Ur Drug Screen Comment See Note Discharge Plan Discharge Disposition: Home, Self-Care Date of Admission: 03/27/23 19:05 Attending Provider on Discharge: Lola Brown Consulting Providers: Lashae Stubbs Primary Care Provider: Provider,Not a Local Condition: Improved Anticipated Discharge Date/Time: 03/28/23 09:04 Discharge Medications: New hydrocodone-acetaminophen 5-325 mg tablet 1 - 2 tab PO Q6H PRN (Reason: Pain) Qty: 20 0RF Rx Instructions: 1 - 2 tab orally as needed amlodipine 10 mg Tablet 10 mg PO DAILY Qty: 30 0RF ondansetron 4 mg tablet,disintegrating 4 mg PO Q8H PRN (Reason: nausea and vomiting) Qty: 5 0RF Discharge Orders: Discharge Order (Routine); Ordered 03/28/23 Ordered By: Lola Brown Patient Education: Hydrocodone/Acetaminophen (By mouth) (Vicodin, [place], Lortab), Amlodipine (By mouth), Ondansetron (By mouth), General Anesthesia (DC), Laparoscopic Cholecystectomy (DC), Post-Operative Instructions: Laparoscopic Cholecystectomy Additional Instructions: Wound care: Your sutures are under the skin and will dissolve over time. Leave steri strips (white bandages) over incisions until they fall off (or remove after 7 days). OK to shower tomorrow but avoid bathing, soaking or swimming for 2 weeks. Pat the incisions dry. No need to wash or scrub the area. Apply ice to the area as needed for swelling. It is also OK to use a heating pad if this provides more comfort to you. Pain control: You were prescribed a pain medication. This medication contains acetaminophen (Tylenol). If you are taking your prescribed pain pills 4 times daily, do not take additional acetaminophen. As your pain improves, you can try taking acetaminophen instead of the prescribed pain pill. It is ok to take Ibuprofen or Naproxen (per directions on packaging). This medication helps with inflammation and swelling. Take an duae-hhr-nideccl stool softener while you are taking prescribed pain medications to help alleviate constipation. I recommend Senna and/or Colace. Take as directed on package. If you have not had a bowel movement in 3 days, try taking Miralax as directed on the package. All of these are available over the counter. Follow-up Follow up with Dr. Stubbs in 2-3 weeks Please call if you are experiencing severe pain, nausea, vomiting, difficulty urinating, fever or have not had bowel movement in 4 days after surgery. I recommend you establish a primary care physician to follow up on your liver and kidney cysts. They may order and ultrasound of your liver and/or kidneys to further evaluate (if this has not been already done). For blood pressure, new medication at pharmacy. Check your blood pressure once/day at home and bring these results to your appt with Dr. Wynn. Activity Level: No strenuous activity Activity Detail: Light activity for 2 weeks. No lifting more than 20 pounds x 2 weeks Discharge Diet: Regular Follow Up Appointments: Lashae Stubbs MD [Staff Physician] - 04/15/23 9:00 am ([place] [place]) Provider,Not a Local [Primary Care Provider] - (Needs an establish care appt with Dr. Wynn at [place] next week to discuss possibly PCKD, HTN) Forms: Work/School Release
--- NOTE | 2023-03-28 11:41 | PM.GSPN ---
Subjective Subjective Date Seen: 03/28/23 Interval history: Rafi is doing well today. He had hypertension postoperatively however this has now significantly improved. No nausea or vomiting. Pain is approximately 2/10. Exam Narrative: Exam Narrative: General: No acute distress CV: Regular rate and rhythm Respiratory: Breathing nonlabored on room air Abdomen: Incisions without erythema. Abdomen is appropriately tender for the postoperative state. Const: Vital Signs, click to edit/add: Vital Signs - 24 hr 03/27/23 14:55 03/27/23 15:00 03/27/23 15:05 Temperature 98.7 F Pulse Rate 107 H 107 H 102 H Pulse Rate [Pulse Oximeter] Respiratory Rate 20 18 17 Blood Pressure 150/90 H 183/95 H 171/117 H Blood Pressure [Ri ght Arm] Pulse Oximetry 96 96 96 Oxygen Delivery Me thod Room Air Room Air Room Air Oxygen Flow Rate 0 0 03/27/23 15:10 03/27/23 15:15 03/27/23 15:20 Temperature 98.5 F Pulse Rate 97 90 90 Pulse Rate [Pulse Oximeter] Respiratory Rate 20 18 18 Blood Pressure 165/112 H 168/111 H 168/122 H Blood Pressure [Ri ght Arm] Pulse Oximetry 96 96 96 Oxygen Delivery Me thod Room Air Room Air Room Air Oxygen Flow Rate 0 0 0 03/27/23 15:25 03/27/23 15:30 03/27/23 15:35 Temperature 99.0 F Pulse Rate 90 89 89 Pulse Rate [Pulse Oximeter] Respiratory Rate 18 20 19 Blood Pressure 165/113 H 167/105 H 168/108 H Blood Pressure [Ri ght Arm] Pulse Oximetry 96 93 93 Oxygen Delivery Me thod Room Air Room Air Room Air Oxygen Flow Rate 0 0 0 03/27/23 15:40 03/27/23 15:45 03/27/23 15:50 Temperature 98.7 F Pulse Rate 83 89 90 Pulse Rate [Pulse Oximeter] Respiratory Rate 20 16 18 Blood Pressure 155/109 H 149/104 H 148/102 H Blood Pressure [Ri ght Arm] Pulse Oximetry 94 95 95 Oxygen Delivery Me thod Room Air Room Air Room Air Oxygen Flow Rate 0 0 0 03/27/23 15:55 03/27/23 16:00 03/27/23 16:00 Temperature 98.6 F 98.4 F 98.5 F Pulse Rate 90 96 Pulse Rate [Pulse Oximeter] 96 Respiratory Rate 18 16 16 Blood Pressure 145/107 H Blood Pressure [Ri ght Arm] 203/131 H 203/131 H Pulse Oximetry 95 93 Oxygen Delivery Me thod Room Air Room Air Room Air Oxygen Flow Rate 0 0 03/27/23 16:15 03/27/23 16:30 03/27/23 16:45 Temperature 98.4 F 98.4 F 98.4 F Pulse Rate Pulse Rate [Pulse Oximeter] 96 90 86 Respiratory Rate 16 16 16 Blood Pressure Blood Pressure [Ri ght Arm] 200/117 H 217/123 H 200/119 H Pulse Oximetry 93 95 95 Oxygen Delivery Me thod Room Air Room Air Room Air Oxygen Flow Rate 0 0 0 03/27/23 17:00 03/27/23 17:30 03/27/23 17:43 Temperature 98.4 F 98.5 F Pulse Rate Pulse Rate [Pulse Oximeter] 97 97 107 H Respiratory Rate 16 16 16 Blood Pressure Blood Pressure [Ri ght Arm] 209/132 H 127/112 H 191/115 H Pulse Oximetry 96 95 96 Oxygen Delivery Me thod Room Air Room Air Room Air Oxygen Flow Rate 0 0 0 03/27/23 20:00 03/27/23 20:00 03/27/23 20:35 Temperature 97.0 F L 97.0 F L Pulse Rate 118 H Pulse Rate [Pulse Oximeter] 109 H 107 H Respiratory Rate 18 16 Blood Pressure Blood Pressure [Ri ght Arm] 155/98 H 151/100 H Pulse Oximetry 93 94 Oxygen Delivery Me thod Room Air Room Air Oxygen Flow Rate 03/27/23 21:00 03/27/23 21:30 03/27/23 22:00 Temperature 98.2 F Pulse Rate Pulse Rate [Pulse Oximeter] 107 H 105 H 104 H Respiratory Rate 18 Blood Pressure Blood Pressure [Ri ght Arm] 153/92 H 149/95 H 149/88 H Pulse Oximetry 94 94 Oxygen Delivery Me thod Room Air Oxygen Flow Rate 03/27/23 23:00 03/28/23 00:00 03/28/23 00:19 Temperature 98.2 F Pulse Rate 99 Pulse Rate [Pulse Oximeter] 99 92 Respiratory Rate 16 Blood Pressure Blood Pressure [Ri ght Arm] 145/93 H 165/98 H Pulse Oximetry 95 Oxygen Delivery Me thod Room Air Oxygen Flow Rate 03/28/23 02:00 03/28/23 03:47 03/28/23 04:00 Temperature Pulse Rate 80 Pulse Rate [Pulse Oximeter] 87 77 Respiratory Rate 16 16 Blood Pressure Blood Pressure [Ri ght Arm] 162/92 H 147/92 H Pulse Oximetry 94 95 Oxygen Delivery Me thod Room Air Room Air Oxygen Flow Rate 03/28/23 05:59 03/28/23 07:00 03/28/23 07:00 Temperature 98.8 F Pulse Rate 78 Pulse Rate [Pulse Oximeter] 101 H 82 Respiratory Rate 16 Blood Pressure Blood Pressure [Ri ght Arm] 164/109 H 139/93 H Pulse Oximetry 95 Oxygen Delivery Me thod Room Air Oxygen Flow Rate 03/28/23 07:00 03/28/23 08:00 Temperature 98.2 F Pulse Rate Pulse Rate [Pulse Oximeter] 78 78 Respiratory Rate 16 16 Blood Pressure Blood Pressure [Ri ght Arm] 159/97 H Pulse Oximetry 97 Oxygen Delivery Me thod Room Air Oxygen Flow Rate 0 Labs/Imaging Labs Labs: Labs were reviewed. Within normal limits. Progress Note: A&P Assessment and plan (1) Cholecystitis: Problem details: - s/p lap cholecystectomy with Dr. Stubbs on 03/27 Status: Acute (2) S/P laparoscopic cholecystectomy: Status: Acute Plan The patient is a 37-year-old male now postop day 1 status post laparoscopic cholecystectomy for acute cholecystitis. He is doing well overall. He is deemed safe for discharge home today. He is going to follow up with his primary care provider regarding hypertension. He will follow up with me in 2 weeks. I reviewed his discharge instructions with him and his .
--- NOTE | 2023-03-28 12:22 | PC.NURSE ---
Discharge: patient alert and oriented x4, VSS, RA, Pain reported /. Patient was started on Amlodipine for hypertension and tolerated medication well. Patient's lap sites on abdomen C/D/I. Patient up independently in room ambulating from bed to bathroom and tolerated activity well. Patient was discharged home today at 1206 accompanied by spouse, IV removed intact. Discharge instructions given and signed by patient, and he verbalized understanding of instructions. Belongings sheet signed.
== END 2023-03-28 12:06 | disposition home or self-care (01) | DRG 418 ==
LOC: ED 16:21 → MEDSURG 19:51 → ED 03-27 08:39 → SS 03-27 08:40 → MEDSURG 03-27 10:03 → SS 04-08 11:02 → MEDSURG 04-08 11:02
PROVIDERS: Surgery; Admitting Provider Hospitalist; Emergency Provider Student in an Organized Health Care Education/Training Program; Visit Provider Surgery
PROC: 0FT44ZZ Resection of Gallbladder, Percutaneous Endoscopic Approach (ICD-10-PCS; CPT 47562; principal; 2023-03-27 11:45)
DX: K80.01 Calculus of gallbladder with acute cholecystitis with obstruction (principal); Q61.3 Polycystic kidney, unspecified; K76.0 Fatty (change of) liver, not elsewhere classified; I10 Essential (primary) hypertension
CPT/HCPCS: 00790; 36415; 76705; 80053; 80306; 81001; 82248; 83690; 84443; 85025; 85610; 88304; 93005; 94761; 99283; A9270; J0330; J0360; J0665; J1100; J1170; J1885; J1940; J2175; J2250; J2270; J2405; J2543; J2704; J3010; J3490; J7030; J7120